=== PATIENT | female | born 1995 | race American Indian/Alaskan Native ===

== ENCOUNTER 2020-09-28 10:36 | Emergency (ER) | payer MEDICAID ==
[2020-09-28 10:51] VITALS: BP 136/88
--- NOTE | 2020-09-28 11:26 | Emergency Department Report ---
- General Chief complaint: Medical Clearance Stated complaint: LUMP ON BREAST Time Seen by Provider: 09/28/20 11:20 Source: patient Mode of arrival: Ambulatory Limitations: No Limitations - History of Present Illness Initial comments: 25-year-old -[place]ian female presents to the emergency room complaining of a lump that is painful to her right breast that she noticed yesterday. Patient states that the pain is worse when she lays on her chest. Patient denies any nipple discharge. Patient denies any trauma to the chest. Patient states she has not had a baby recently. Patient denies any other past medical history currently takes no medications on a daily basis and is allergic to penicillin. MD complaint: abscess/boil Onset/Timin -: days(s) Tetanus Up to Date: yes Location: chest (Right breast) Severity scale (0 -10): 7 Quality: aching Consistency: intermittent Improves with: none Worsens with: rest ( on chest) Associated symptoms: denies other symptoms, other (No nipple discharge) Treatments Prior to Arrival: none - Related Data Previous Rx's Medication Instructions Recorded Last Taken Type Albuterol Sulfate [Albuterol 0.63% 0.63 mg IH TID PRN #270 ml 09/28/20 Unknown Rx NEBS] Clindamycin [Clindamycin CAP] 300 mg PO Q8H 10 Days #30 cap 09/28/20 Unknown Rx Ibuprofen [Motrin 600 MG tab] 600 mg PO Q8H PRN #30 tablet 09/28/20 Unknown Rx Allergies Allergy/AdvReac Type Severity Reaction Status Date / Time Penicillins Allergy Hives Verified 09/28/20 10:45 Abscess Boil HPI - HPI Chief Complaint: Medical Clearance Stated Complaint: LUMP ON BREAST Time Seen by Provider: 09/28/20 11:20 Home Medications: Previous Rx's Medication Instructions Recorded Last Taken Type Albuterol Sulfate [Albuterol 0.63% 0.63 mg IH TID PRN #270 ml 09/28/20 Unknown Rx NEBS] Clindamycin [Clindamycin CAP] 300 mg PO Q8H 10 Days #30 cap 09/28/20 Unknown Rx Ibuprofen [Motrin 600 MG tab] 600 mg PO Q8H PRN #30 tablet 09/28/20 Unknown Rx Allergies/Adverse Reactions: Allergies Allergy/AdvReac Type Severity Reaction Status Date / Time Penicillins Allergy Hives Verified 09/28/20 10:45 ED Review of Systems ROS: Stated complaint: LUMP ON BREAST Other details as noted in HPI Comment: All other systems reviewed and negative ED Past Medical Hx - Past Medical History Hx Asthma: Yes - Surgical History Hx Cholecystectomy: Yes Additional Surgical History: C SECTION - Social History Smoking Status: Current Every Day Smoker Substance Use Type: None - Medications Home Medications: Home Medications Medication Instructions Recorded Confirmed Last Taken Type Albuterol Sulfate [Albuterol 0.63% 0.63 mg IH TID PRN #270 ml 09/28/20 Unknown Rx NEBS] Clindamycin [Clindamycin CAP] 300 mg PO Q8H 10 Days #30 cap 09/28/20 Unknown Rx Ibuprofen [Motrin 600 MG tab] 600 mg PO Q8H PRN #30 tablet 09/28/20 Unknown Rx ED Physical Exam - General Limitations: No Limitations General appearance: alert, in no apparent distress - Head Head exam: Present: atraumatic, normocephalic - Eye Eye exam: Present: normal appearance - ENT ENT exam: Present: mucous membranes moist - Neck Neck exam: Present: normal inspection, full ROM - Respiratory Respiratory exam: Present: other (Right breast induration other areola with tenderness no discharge from nipple). Absent: chest wall tenderness - Cardiovascular Cardiovascular Exam: Present: regular rate, normal rhythm. Absent: systolic murmur, diastolic murmur, rubs, gallop - Neurological Exam Neurological exam: Present: alert, oriented X3, normal gait - Psychiatric Psychiatric exam: Present: normal affect, normal mood - Skin Skin exam: Absent: intact ED Course Vital Signs 09/28/20 10:49 Temperature 98.7 F Pulse Rate 73 Respiratory 18 Rate Blood Pressure 136/88 O2 Sat by Pulse 100 Oximetry ED Medical Decision Making - Medical Decision Making 25-year-old -Armenian female presents to the emergency room complaining of a lump that is painful to her right breast that she noticed yesterday. Patient states that the pain is worse when she lays on her chest. Patient denies any nipple discharge. Patient denies any trauma to the chest. Patient states she has not had a baby recently. Patient denies any other past medical history currently takes no medications on a daily basis and is allergic to penicillin. Patient will be treated for abscess to her right breast with clindamycin ibuprofen and refilled her albuterol nebulizer solution for asthma. Patient was referred to multiple [facility] EP[facility]EMIOLOGIST. Critical care attestation.: If time is entered above; I have spent that time in minutes in the direct care of this critically ill patient, excluding procedure time. ED Disposition Clinical Impression: Abscess of right breast, Asthma, Medication refill Disposition: TO HOME OR SELFCARE Is pt being admited?: No Does the pt Need Aspirin: No Condition: Stable Instructions: Mastitis, [id number], Asthma (ED) Additional Instructions: Complete antibiotics as prescribed. Warm compress to the breasts. Follow-up with NURSE EPIDEMIOLOGIST as she may need further imaging. Ibuprofen for pain management. Prescriptions: Albuterol Sulfate [Albuterol 0.63% NEBS] 0.63 mg IH TID PRN #270 ml PRN Reason: Wheezing Clindamycin [Clindamycin CAP] 300 mg PO Q8H 10 Days #30 cap Ibuprofen [Motrin 600 MG tab] 600 mg PO Q8H PRN #30 tablet PRN Reason: Pain Referrals: PRIMARY CARE [Primary Care Provider] - 3-5 Days [facility] [Provider Group] - 3-5 Days [facility] [Provider Group] - 3-5 Days [facility] [Provider Group] - 3-5 Days Forms: Work/School Release Form(ED)
== END 2020-09-28 11:42 | disposition home or self-care (01) ==
LOC: ED 10:36
DX: N61.1 Abscess of the breast and nipple (principal); J45.909 Unspecified asthma, uncomplicated; Z76.0 Encounter for issue of repeat prescription; F17.200 Nicotine dependence, unspecified, uncomplicated; Z90.49 Acquired absence of other specified parts of digestive tract; Z98.890 Other specified postprocedural states; Z79.1 Long term (current) use of non-steroidal anti-inflammatories (NSAID); Z79.2 Long term (current) use of antibiotics; Z79.899 Other long term (current) drug therapy; Z88.0 Allergy status to penicillin
CPT/HCPCS: 99282

== ENCOUNTER 2021-06-13 16:55 | Emergency (ER) | payer MEDICAID ==
[2021-06-13] MEDS ORDERED: IBUPROFEN 600 MG TAB PO ONE (17:16)
[2021-06-13] MEDS ORDERED: CLINDAMYCIN 300 MG CAP PO ONE (17:16)
[2021-06-13] MEDS ORDERED: LIDOCAINE (1%) 10 MG/1 ML VIAL 20 ML MDV INFILTRATI ONE (17:16)
[2021-06-13] MEDS ORDERED: SODIUM CHLORIDE 0.9% IRR 500 ML BOTTLE IR ONE (17:16)
--- NOTE | 2021-06-13 17:17 | Emergency Department Report ---
- General Chief complaint: Wound/Laceration Stated complaint: LUMP ON LEFT BREAST Time Seen by Provider: 06/13/21 17:16 Source: patient Mode of arrival: Ambulatory Limitations: No Limitations - History of Present Illness Initial comments: 26 YO COMES TO ER VIA EMS WITH LEFT BREAST ABSCESS AFTER BEING BIT BY A BUG complaint: abscess/boil -: Gradual, days(s) Tetanus Up to Date: yes Severity: mild Quality: aching Consistency: constant Improves with: none Worsens with: none Context: none Treatments Prior to Arrival: none - Related Data Previous Rx's Medication Instructions Recorded Last Taken Type Clindamycin [Clindamycin CAP] 300 mg PO Q8H 10 Days #30 cap 06/13/21 Unknown Rx Allergies Allergy/AdvReac Type Severity Reaction Status Date / Time Penicillins Allergy Hives Verified 09/28/20 10:45 Abscess Boil HPI - HPI Chief Complaint: Wound/Laceration Stated Complaint: LUMP ON LEFT BREAST Time Seen by Provider: 06/13/21 17:16 Home Medications: Previous Rx's Medication Instructions Recorded Last Taken Type Clindamycin [Clindamycin CAP] 300 mg PO Q8H 10 Days #30 cap 06/13/21 Unknown Rx Allergies/Adverse Reactions: Allergies Allergy/AdvReac Type Severity Reaction Status Date / Time Penicillins Allergy Hives Verified 09/28/20 10:45 ED Review of Systems ROS: Stated complaint: LUMP ON LEFT BREAST Other details as noted in HPI Comment: All other systems reviewed and negative ED Past Medical Hx - Past Medical History Previous Medical History?: Yes Hx Asthma: Yes - Surgical History Past Surgical History?: Yes Hx Cholecystectomy: Yes Additional Surgical History: C SECTION - Family History Family history: no significant - Social History Smoking Status: Current Every Day Smoker Substance Use Type: None - Medications Home Medications: Home Medications Medication Instructions Recorded Confirmed Last Taken Type Clindamycin [Clindamycin CAP] 300 mg PO Q8H 10 Days #30 cap 06/13/21 Unknown Rx ED Physical Exam - General Limitations: No Limitations General appearance: alert, in no apparent distress - Head Head exam: Present: atraumatic, normocephalic - Eye Eye exam: Present: normal appearance - ENT ENT exam: Present: mucous membranes moist - Neck Neck exam: Present: normal inspection - Respiratory Respiratory exam: Present: normal lung sounds bilaterally. Absent: respiratory distress - Cardiovascular Cardiovascular Exam: Present: regular rate, normal rhythm, other (HR 90 ON EXAM ). Absent: systolic murmur, diastolic murmur, rubs, gallop - GI/Abdominal GI/Abdominal exam: Present: soft, normal bowel sounds - Extremities Exam Extremities exam: Present: normal inspection - Back Exam Back exam: Present: normal inspection - Neurological Exam Neurological exam: Present: alert, oriented X3 - Psychiatric Psychiatric exam: Present: normal affect, normal mood - Skin Skin exam: Present: warm, dry, intact, normal color. Absent: rash ED Course Vital Signs 06/13/21 06/13/21 06/13/21 17:07 17:16 18:23 Temperature 97.7 F 98 F Pulse Rate 115 H 92 H Respiratory 16 16 16 Rate Blood Pressure 137/86 130/83 [Right] O2 Sat by Pulse 99 96 97 Oximetry - I & D L BREAST Type of Procedure: Simple Site: L BREAST Blade Size: 11 I & D Procedure: betadine prep, sterile drapes applied Progress: AREA ANESTH. WITH 1% LIDO LARGE AMOUNT DRAINAGE WOUND CARE PT TOLERATED WELL ED Medical Decision Making - Medical Decision Making Vital Signs 06/13/21 17:07 Temperature 97.7 F Pulse Rate 115 H Respiratory 16 Rate Blood Pressure 137/86 [Right] O2 Sat by Pulse 99 Oximetry I/D PER PROCEDURE NOTED MEDICATED FOR PAIN AND WITH CLINDA WOUND CARE INSTRUCTIONS PROVIDED DC HOME WITH PCP FOLLOW UP PT VERBALIZES UNDERSTANDING OF DC PLAN OF CARE. INCLUDING WOUND CARE, MEDS, DIET ACTIVITY AND FOLLOW UP - Differential Diagnosis SIMPLE ABSCESS Critical care attestation.: If time is entered above; I have spent that time in minutes in the direct care of this critically ill patient, excluding procedure time. ED Disposition Clinical Impression: Abscess Disposition: 01 HOME / SELF CARE / HOMELESS Is pt being admited?: No Does the pt Need Aspirin: No Condition: Stable Instructions: Skin Abscess Additional Instructions: MOTRIN OR TYLENOL FOR PAIN MED ORDERED TODAY UNTIL GONE FOLLOW UP WITH PCP NEXT WEEK FOR RECHECK TAKE MEDS WITH FOOD SOAK IN TUB OF EPSOM SALTS EVERY 4 HOURS THIS WILL FACILITATE DRAINAGE OF WOUND Prescriptions: Clindamycin [Clindamycin CAP] 300 mg PO Q8H 10 Days #30 cap Referrals: DAVID OCONNOR MD [Staff Physician] - 3-5 Days Forms: Work/School Release Form(ED) Time of Disposition: 17:54
[2021-06-13] MEDS ORDERED: HYDROcodone/ACETAMINOPHEN 5-325 MG TAB PO ONE (17:54)
[2021-06-13 18:24] VITALS: BP 130/83
== END 2021-06-13 18:24 | disposition home or self-care (01) ==
LOC: ED 16:55
DX: N61.1 Abscess of the breast and nipple (principal); J45.909 Unspecified asthma, uncomplicated; Z98.890 Other specified postprocedural states; F17.200 Nicotine dependence, unspecified, uncomplicated; Z88.0 Allergy status to penicillin
CPT/HCPCS: 99283